=== PATIENT | male | born 1990 | race Caucasian/White ===

== ENCOUNTER 2021-04-12 08:28 | Observation (INO) ==
[2021-04-12] MEDS ORDERED: KETOROLAC TROMETHAMINE 15 MG/ML VIAL IV STA (08:42)
[2021-04-12] MEDS ORDERED: ONDANSETRON INJ 2 MG/ML 2 ML VIAL IV STA ×2 (08:42→11:29)
[2021-04-12] MEDS ORDERED: SODIUM CHLORIDE 0.9% 1000ML 1,000 ML IV ONE (08:42)
--- NOTE | 2021-04-12 08:48 | Emergency Department Note ---
History of Present Illness General Chief Complaint: Flank Pain Stated Complaint: LEFT FLANK PAIN/POSSIBLE KIDNEY STONE? Time Seen by Provider: 04/12/21 08:35 History of Present Illness Provider Complaint: flank pain Onset (ago): 3 day(s) Pain Consistency: intermittent Location: L flank Severity: severe Maximum Pain Intensity: 10 Current Pain Intensity: 8 Quality: + stabbing, + aching, + sharp and + dull Relieved By: + nothing Exacerbated By: + nothing Context: + possible food poisoning (Thought it might be due to eating food that [employer]) and + history of similar episodes (Kidney stone); no foreign travel, no sick contacts, no recent antibiotic use, no recent surgery/procedure or no recent injury Associated Symptoms: + nausea, + vomiting, + diarrhea and + chills; no fever, no constipation, no dysuria, no hematemesis, no hematochezia, no melena, no hematuria, no anorexia, no syncope, no headache, no neck pain, no back pain, no chest pain, no weakness, no breathing difficulty and no numbness Home Medications Medication Instructions Recorded Confirmed Type No Known Home Medications 04/11/21 04/12/21 History Allergies Allergy/AdvReac Type Severity Reaction Status Date / Time No Known Allergies Allergy Unverified 04/12/21 08:44 Past Med/Surg History Medical History No pertinent family history No significant past medical history Surgical History No history of previous surgery Social History Smoking Status: Never smoker Preferred Language: Armenian Feels Safe at Home: Yes Review of Systems A total of 10 systems reviewed and were otherwise negative Physical Exam Vital Signs: Vital Signs - 24 hr 04/12/21 08:32 04/12/21 08:42 04/12/21 12:00 Temperature 37.0 C Temperature Source Oral Pulse Rate 80 82 Respiratory Rate 17 18 Blood Pressure 132/80 Blood Pressure Joceline n 97 Pulse Oximetry 91 100 99 Oxygen Delivery Me thod Room Air Room Air Room Air Sepsis Recent Feve r Within 48 Hours No Sepsis New/Unexpla ined Change in Men akng Status N/A Sepsis Action Take n by Nursing No Action Required Physical Exam: Physical Exam GENERAL: He is oriented to person, place, and time. He appears well-developed and well-nourished. He does not appear distressed. HENT: Exam performed. - Head: Normocephalic and atraumatic. - Right Ear: External ear normal. No mastoid tenderness. - Left Ear: External ear normal. No mastoid tenderness. - Mouth/Throat: The oropharynx is clear and moist. No trismus in the jaw. No dental abscesses or uvula swelling. No oropharyngeal exudate or tonsillar abscesses. EYES: Conjunctivae and EOM are normal. Pupils are equal, round, and reactive to light. Right eye exhibits no discharge. Left eye exhibits no discharge. No scleral icterus. NECK: Normal range of motion. Neck supple. No JVD present. No spinous process tenderness present. No carotid bruit present. No rigidity. No tracheal deviation and normal range of motion present. No Brudzinski's sign and no Kernig's sign noted. CV: Normal rate, regular rhythm, normal heart sounds and intact distal pulses. There is no peripheral edema. Palpable radial pulses bue. PULM/CHEST: Effort normal and breath sounds normal. No respiratory distress. No stridor. He has no wheezes. He has no rales. - Chest Wall: He exhibits no tenderness. ABD: The abdomen is soft. Bowel sounds are normal. He has no distension. No mass is present. There is no tenderness. There is no rebound, no guarding, no Boykin's sign and no tenderness at McBurney's point. Rovsig negative. MUSC/SKEL: Normal range of motion. There is no peripheral edema, tenderness or deformity. LYMPH: No cervical adenopathy. NEURO: He is alert and oriented to person, place, and time. He has normal strength. No cranial nerve deficit or sensory deficit. Coordination and gait normal. GCS eye subscore is 4. GCS verbal subscore is 5. GCS motor subscore is 6. Cerebellar tests wnl. SKIN: Skin is warm and dry. He is not diaphoretic. PSYCH: He has a normal mood and affect. Behavior is normal. Judgment and thought content normal. Course Course 0835: The patient was evaluated in room B6. A complete history and physical exam was performed Cardiac monitoring: An order was placed for continuous cardiac monitoring. The monitor shows a rate of 80 with sinusrhythm EMR reviewed. Patient was seen in the emergency department yesterday. Patient had a CT scan of the abdomen which was negative.Labs including urinalysis were also negative. 1208: Vital signs stable. Labs show an increase in the bilirubin level of 2.8. Labs are otherwise within normal limits. Imaging within normal limits. Patient is having no right-sided abdominal pain. Patient reports he is still having nausea and vomited multiple times in the emergency department. Patient will be given repeat antiemetics and more IV fluids. [facility] be [facility] for intractable nausea and vomiting. Discussed case with Dr. Young agrees to evaluate the patient. Administered Medications Sodium Chloride (Nss 1000ml) 1,000 mls @ 125 mls/hr IV .Q8H AMANDA Stop: 05/12/21 11:29 Last Admin: 04/12/21 12:06 Dose: 125 mls/hr Documented by: [id number] Discontinued Medications Sodium Chloride (Nss 1000ml) 1,000 mls @ 999 mls/hr IV .Q1H1M ONE Stop: 04/12/21 09:42 Last Admin: 04/12/21 08:59 Dose: 999 mls/hr Documented by: [id number] Ketorolac Tromethamine (Ketorolac Tromethamine 15 Mg/Ml Vial) 15 mg IV NOW STA Stop: 04/12/21 08:43 Last Admin: 04/12/21 08:59 Dose: 15 mg Documented by: [id number] Morphine Sulfate (Morphine Sulfate 4 Mg/Ml 1 Ml Carp\Vial) 4 mg IV NOW STA Stop: 04/12/21 09:45 Last Admin: 04/12/21 09:49 Dose: 4 mg Documented by: [id number] Ondansetron HCl (Ondansetron Inj 2 Mg/Ml 2 Ml Vial) 4 mg IV NOW STA Stop: 04/12/21 08:43 Last Admin: 04/12/21 08:58 Dose: 4 mg Documented by: [id number] Ondansetron HCl (Ondansetron Inj 2 Mg/Ml 2 Ml Vial) 4 mg IV NOW STA Stop: 04/12/21 11:30 Last Admin: 04/12/21 12:06 Dose: 4 mg Documented by: [id number] Medical Decision Making Laboratory Data Result diagrams: 04/12/21 Unknown 04/12/21 Unknown Lab Results 04/12/21 04/12/21 04/12/21 Range/Units 09:40 Unknown Unknown WBC 6.11 (4.8-10.8) K/uL RBC 5.43 (4.7-6.1) M/uL Hgb 16.4 (14.0-18.0) g/dL Hct 45.9 (42-52) % MCV 84.5 (80-100) fL MCH 30.2 (25-34) pg MCHC 35.7 (32-36) g/dL RDW Std Deviation 39.1 (36.4-46.3) fL RDW Coeff of Inocencia 12.8 (11.5-14.5) % Plt Count 224 (130-400) K/uL MPV 10.1 (7.4-10.4) fL Immature Gran % (Auto) 0.2 % Neut % (Auto) 64.3 % Lymph % (Auto) 29.3 % [place] % (Auto) 5.2 % Eos % (Auto) 0.7 % Baso % (Auto) 0.3 % Neut # (Auto) 3.93 (1.4-6.5) K/uL Lymph # (Auto) 1.79 (1.2-3.4) K/uL [place] # (Auto) 0.32 (0.11-0.59) K/uL Eos # (Auto) 0.04 (0-0.5) K/uL Baso # (Auto) 0.02 (0-0.2) K/uL Immature Gran # (Auto) 0.01 (0.00-0.02) K/uL Sodium 137 (136-145) mmol/L Potassium 3.3 L (3.5-5.1) mmol/L Chloride 102 (98-107) mmol/L Carbon Dioxide 25 (21-32) mmol/L Anion Gap 10.0 (3-11) BUN 18 (7-18) mg/dl Creatinine 1.28 (0.6-1.4) mg/dl Est Cr Clr Drug Dosing 96.7 ml/min Est GFR ( Amer) 85.9 ml/min Est GFR (Non-Af Amer) 74.1 ml/min BUN/Creatinine Ratio 13.8 (10-20) Glucose 144 H (70-99) mg/dl Calcium 9.2 (8.5-10.1) mg/dl Total Bilirubin 2.8 H D (0.2-1) mg/dl Direct Bilirubin 0.4 H (0-0.2) mg/dl AST 11 L (15-37) U/L ALT 20 (12-78) U/L Alkaline Phosphatase 70 (45-117) U/L Total Protein 7.8 (6.4-8.2) gm/dl Albumin 4.3 (3.4-5.0) gm/dl Lipase 91 (73-393) U/L Influ A Molecular Assay Negative (Negative) Influ B Molecular Assay Negative (Negative) SARS-CoV-2, RNA, NAAT (NEGATIVE) 04/12/21 Range/Units Unknown WBC (4.8-10.8) K/uL RBC (4.7-6.1) M/uL Hgb (14.0-18.0) g/dL Hct (42-52) % MCV (80-100) fL MCH (25-34) pg MCHC (32-36) g/dL RDW Std Deviation (36.4-46.3) fL RDW Coeff of Inocencia (11.5-14.5) % Plt Count (130-400) K/uL MPV (7.4-10.4) fL Immature Gran % (Auto) % Neut % (Auto) % Lymph % (Auto) % [place] % (Auto) % Eos % (Auto) % Baso % (Auto) % Neut # (Auto) (1.4-6.5) K/uL Lymph # (Auto) (1.2-3.4) K/uL [place] # (Auto) (0.11-0.59) K/uL Eos # (Auto) (0-0.5) K/uL Baso # (Auto) (0-0.2) K/uL Immature Gran # (Auto) (0.00-0.02) K/uL Sodium (136-145) mmol/L Potassium (3.5-5.1) mmol/L Chloride (98-107) mmol/L Carbon Dioxide (21-32) mmol/L Anion Gap (3-11) BUN (7-18) mg/dl Creatinine (0.6-1.4) mg/dl Est Cr Clr Drug Dosing ml/min Est GFR ( Amer) ml/min Est GFR (Non-Af Amer) ml/min BUN/Creatinine Ratio (10-20) Glucose (70-99) mg/dl Calcium (8.5-10.1) mg/dl Total Bilirubin (0.2-1) mg/dl Direct Bilirubin (0-0.2) mg/dl AST (15-37) U/L ALT (12-78) U/L Alkaline Phosphatase (45-117) U/L Total Protein (6.4-8.2) gm/dl Albumin (3.4-5.0) gm/dl Lipase (73-393) U/L Influ A Molecular Assay (Negative) Influ B Molecular Assay (Negative) SARS-CoV-2, RNA, NAAT NEGATIVE (NEGATIVE) Imaging Data Radiologist's Impression: Chest/Abdomen X-ray 04/12/21 08:42 XR abdomen 2V w PA chest HISTORY: 31 years-old Male L flank pain acute left-sided flank pain COMPARISON: Chest radiograph 09/17/2011, CT abdomen and pelvis 04/11/2021 TECHNIQUE: PA view of the chest with erect and supine views of the abdomen FINDINGS: Cardiomediastinal and hilar silhouettes are within normal limits. No pneumothorax, pleural effusion, airspace consolidation or overt pulmonary edema. No acute fracture. Nonobstructive bowel gas pattern. No pneumatosis or pneumop eritoneum. No urolith. IMPRESSION: 1. No acute processes of the chest. 2. Nonobstructive bowel gas pattern. 3. No renal or ureteral calculi identified. ACT 112: Negative or not required by law. The above report was generated using voice recognition software. It may contain grammatical, syntax or spelling errors. Electronically signed by: Zachary Green M.D. 04/12/2021 9:46 AM MDM Narrative 0835: The patient was evaluated in room B6. A complete history and physical exam was performed Cardiac monitoring: An order was placed for continuous cardiac monitoring. The monitor shows a rate of 80 with sinusrhythm EMR reviewed. Patient was seen in the emergency department yesterday. Patient had a CT scan of the abdomen which was negative.Labs including urinalysis were also negative. 1208: Vital signs stable. Labs show an increase in the bilirubin level of 2.8. Labs are otherwise within normal limits. Imaging within normal limits. Patient is having no right-sided abdominal pain. Patient reports he is still having nausea and vomited multiple times in the emergency department. Patient will be given repeat antiemetics and more IV fluids. [facility] be [facility] the [facility] for intractable nausea and vomiting. Discussed case with Dr. Young agrees to evaluate the patient. Impression & Plan Intractable vomiting with nausea, Acute left flank pain, Elevated bilirubin Discharge Plan Visit Data Chief Complaint: Flank Pain Stated Complaint: LEFT FLANK PAIN/POSSIBLE KIDNEY STONE? ED Provider: Mohsen Montalvo Discharge Problem: Intractable vomiting with nausea, Acute left flank pain, Elevated bilirubin Patient Disposition: Being Evaluated by Hospitalist Forms Stand Alone Forms: [facility] Prescriptions Prescriptions: No Action No Known Home Medications RF: 0 Referrals Referrals: PCP,NO [Primary Care Provider] -
[2021-04-12 09:22] LABS: Basophils # (auto) 0.02 K/uL (0-0.2); Basophils % (auto) 0.3 %; Eosinophils # (auto) 0.04 K/uL (0-0.5); Eosinophils % (auto) 0.7 %; Hematocrit (blood only) 45.9 % (42-52); Hemoglobin 16.4 g/dL (14.0-18.0); Immature Granulocytes # (auto) 0.01 K/uL (0.00-0.02); Immature Granulocytes % (auto) 0.2 %; Lymphocytes # (auto) 1.79 K/uL (1.2-3.4); Lymphocytes % (auto) 29.3 %; Mean Corpuscular Hemoglobin 30.2 pg (25-34); Mean Corpuscular Hgb Conc 35.7 g/dL (32-36); Mean Corpuscular Volume 84.5 fL (80-100); Mean Platelet Volume 10.1 fL (7.4-10.4); Monocytes # (auto) 0.32 K/uL (0.11-0.59); Monocytes % (auto) 5.2 %; Neutrophils # (auto) 3.93 K/uL (1.4-6.5); Neutrophils % (auto) 64.3 %; Platelet Count 224 K/uL (130-400); RDW Coefficient of Variation 12.8 % (11.5-14.5); RDW Standard Deviation 39.1 fL (36.4-46.3); Red Blood Count 5.43 M/uL (4.7-6.1); White Blood Count 6.11 K/uL (4.8-10.8)
[2021-04-12 09:38] LABS: Albumin Level 4.3 gm/dl (3.4-5.0); BUN Creatinine Ratio 13.8 (10-20); Bilirubin Direct 0.4 mg/dl (0-0.2); Calcium 9.2 mg/dl (8.5-10.1); Creatinine Clr Calc Pharmacy 96.7 ml/min; Est GFR (African American) 85.9 ml/min; Est GFR (Non-African American) 74.1 ml/min; Potassium 3.3 mmol/L (3.5-5.1)
[2021-04-12] MEDS ORDERED: MoRPHine SULFATE 4 MG/ML 1 ML CARP\\VIAL IV STA (09:44)
[2021-04-12 09:45] LABS: Bilirubin,Total 2.8 mg/dl (0.2-1); Total Protein 7.8 gm/dl (6.4-8.2)
--- NOTE | 2021-04-12 09:47 | XRay Report ---
XR abdomen 2V w PA chest HISTORY: 31 years-old Male L flank pain acute left-sided flank pain COMPARISON: Chest radiograph 09/17/2011, CT abdomen and pelvis 04/11/2021 TECHNIQUE: PA view of the chest with erect and supine views of the abdomen FINDINGS: Cardiomediastinal and hilar silhouettes are within normal limits. No pneumothorax, pleural effusion, airspace consolidation or overt pulmonary edema. No acute fracture. Nonobstructive bowel gas pattern. No pneumatosis or pneumoperitoneum. No urolith. IMPRESSION: 1. No acute processes of the chest. 2. Nonobstructive bowel gas pattern. 3. No renal or ureteral calculi identified. ACT 112: Negative or not required by law. The above report was generated using voice recognition software. It may contain grammatical, syntax o r spelling errors. Electronically signed by: Zachary Green M.D. 04/12/2021 9:46 AM
[2021-04-12 10:29] LABS: Influenza A virus by PCR Negative (Negative); Influenza B virus by PCR Negative (Negative)
[2021-04-12] MEDS ORDERED: SODIUM CHLORIDE 0.9% 1000ML 1,000 ML IV SCH (11:30)
--- NOTE | 2021-04-12 12:17 | History & Physical Report ---
Date of Service April 12, 2021 Assessment & Plan (1) Diarrhea: Plan: Likely VGE - no fevers, chills or elevated WBC- - nonspecific bowel gas pattern on KUB - Supportive care for now - antiemetics, LR, electrolyte replacment (2) Acute left flank pain: Plan: MSK vs. Renal - ? Passing of kidney stone at home - No evidence of renal involvement noted on KUB/CT scan of the abdomen - Follow symtpatology - Urine pending (3) Elevated bilirubin: Plan: Unsure of etiology- no anemia, no abnormalities on CT of abdomen in regards to liver, no jaundice, negative boykin's sign - Hydrate- follow levels - Direct and total elevated with indirect 2.4 (4) Hypokalemia: Plan: Replete with 40meq KCL - LR overnight History of Present Illness Primary Care Provider: BLAKE PCP 31 YOM with no documented medical history: Patient came to the [facility] yesterday for evaluation of flank pain, diarrhea. He reports this started on when he went to [facility] and had a pizza after eating he had onset of low back pain that waxed and waned through the night. It was located on his left side and felt like a bruise. Tuesday he had chicken strips on from [facility], but did not have any symptoms following that. He has not had any fevers, abdominal pain, and has been able to drink and mostly tolerate "BRAT" diet. Yesterday morning he did note a sharp stabbing pain in the left flank, followed by chills and sweating and thinks he may have passed out. For his diarrhea it is "normal brown" and liquid with no reports of blood or mucous. He had a normal BM this morning, but remains with back/flank pain. He vomited x2 this morning that was yellow bilious in nature. His pain is located in his left lower back L5-S1 off the left lateral spine. He does not have any CVA tenderness and there is no pain with palpation. Patient does endorse some marijuana use, reported lastly on Tuesday. In the [facility] the patient had routine labs performed, CXR and CT scan of the abdomen performed yesterday. CT of the abdomen with IV contrast was negative for nephrolithiasis or acute abd process. His CKR and KUB today reveals no acute chest process and non-specific bowel gas pattern. His labs are noted for mild increase in his bilirubin and direct bili with normal LFTs and negative Boykin's sign. Patient denies any chronic alcohol abuse/misuse, does not smoke cigarettes or vape. He has one dog that he reports removing some ticks from, but no skin lesions on him, and no other consistent symptoms that go with tick-borne. Patient will be observed overnight, will follow LFTs, UA and tox screen pending, hydrate with LR overnight and replete electrolytes. Patient has received his COVID vaccine and his COVID test is: NEGATIVE Allergies Allergy/AdvReac Type Severity Reaction Status Date / Time No Known Allergies Allergy Unverified 04/12/21 08:44 Home Medications Medication Instructions Recorded Confirmed Type No Known Home Medications 04/11/21 04/12/21 History Past Med/Surg History Medical History No pertinent family history No significant past medical history Surgical History No history of previous surgery Social History Smoking Status: Never smoker Hx Alcohol Use: Yes Alcohol type: beer Hx Substance Use: Yes Last Used Substance: Days (ago) Preferred Language: Bruneian Communication Ability: Effective Java [id number] Technical Lead Required: No Beliefs That Will Affect Care: None Current Living Situation: Significant Other Other Information That Helps Us Care for You: No Feels Safe at Home: Yes Safety Concerns: Feels Safe At This Time Assistive Devices: None Review of Systems Review of Systems: REVIEW OF SYSTEMS: Constitutional: No fever, sweats or chills Eyes: No diplopia, no worsening or blurred vision ENT: normal hearing, no trouble swallowing Respiratory: No cough, sputum, dyspnea at rest or on exertion Cardiovascular: No chest pain, tightness or palpitations Abdomen: (+) nausea, vomiting, diarrhea, No pain, or constipation Musculoskeletal: (+) left lower back joint pain, No calf pain, swelling Neurologic: No weakness, numbness/tingling, or balance problems Psychiatric: No anxiety or depression Skin: No rash or itch Physical Exam Physical Exam: PHYSICAL EXAM: General: awake, alert, no apparent distress Head: Normocephalic, atraumatic ENT: PERRL, EOMI, no pharyngeal exudate, mucous membranes moist Neuro: AAO x 3, speech clear and appropriate, strength intact bilaterally 5/5, sensation intact and equal all extremities and dermatomes, no pronator drift Chest: equal rise and fall of the chest, no accessory muscle use, no heaves or thrills, Clear to auscultation, on room air, Cardiac: Regular rate and rhythm, telemetry reviewed, skin warm dry, cap refill <3 seconds, peripheral pulses +2 no JVD, no murmur, no edema GI: NABS x 4 quadrants, soft, nontender to palpation, no rebound, guarding or tenderness : Spontaneously voiding, no pain, no CVA tenderness, Extremities: Normal inspection, no peripheral edema or erythema, calfs nontender to palpation Psych: Normal mood and affect Skin: no rash or erythema Results & Data Results & Data ([facility]) Vital Signs (Past 12 Hours) Vital Signs Temp Pulse Resp BP Pulse Ox 04/12/21 08:42 82 18 100 04/12/21 08:32 37.0 C 80 17 132/80 91 Laboratory Results Abnormal lab results 04/12/21 Range/Units Unknown Potassium 3.3 L (3.5-5.1) mmol/L Glucose 144 H (70-99) mg/dl Total Bilirubin 2.8 H D (0.2-1) mg/dl Direct Bilirubin 0.4 H (0-0.2) mg/dl AST 11 L (15-37) U/L Diagnostic Findings Chest/Abdomen X-ray 04/12/21 08:42 XR abdomen 2V w PA chest HISTORY: 31 years-old Male L flank pain acute left-sided flank pain COMPARISON: Chest radiograph 09/17/2011, CT abdomen and pelvis 04/11/2021 TECHNIQUE: PA view of the chest with erect and supine views of the abdomen FINDINGS: Cardiomediastinal and hilar silhouettes are within normal limits. No pneumothorax, pleural effusion, airspace consolidation or overt pulmonary edema. No acute fracture. Nonobstructive bowel gas pattern. No pneumatosis or pneumoperitoneum. No urolith. IMPRESSION: 1. No acute processes of the chest. 2. Nonobstructive bowel gas pattern. 3. No renal or ureteral calculi identified. ACT 112: Negative or not required by law. The above report was generated using voice recognition software. It may contain grammatical, syntax or spelling errors. Electronically signed by: Zachary Green M.D. 04/12/2021 9:[address] abd pelvis IV con only CLINICAL HISTORY: LEFT FLANK PAIN, DIARRHEA, POSSIBLE KIDNEY STONE TECHNIQUE: Helical axial images of the abdomen and pelvis were obtained and displayed. Automated dose lowering techniques and/or adjustment according to patient size were utilized for this exam. This exam was performed with intravenous contrast. COMPARISON: None available at the time of this dictation. FINDINGS: Lower chest: No acute abnormality Liver: Unremarkable. No focal lesions are seen. Gallbladder and biliary tree: No calcified gallstones. Normal caliber wall. No intra- or extrahepatic biliary ductal dilation. Pancreas: Unremarkable, no focal lesions. Spleen: Unremarkable. Adrenals: Unremarkable. Kidneys and ureters: Unremarkable. In particular there is no left hydronephrosis or nephrolithiasis. Bladder: Unremarkable. Reproductive organs: Unremarkable. Bowel: Unremarkable appearance of the bowel. The appendix is normal. Lymph nodes Retroperitoneal: Unremarkable. Mesenteric: Unremarkable. Pelvic: Unremarkable. Peritoneum: Normal Vessels: Unremarkable. Abdominal wall: Unremarkable. Bones: Unremarkable. IMPRESSION: No acute abnormalities and in particular no evidence of nephrolithiasis or hydronephrosis. ACT 112: Negative or not required by law. Electronically signed by: Rolando Babb M.D. 04/11/2021 3:40 PM Medications Administered Home Medications No Known Home Medications 04/11/21 [History Confirmed 04/12/21] Active Medications Sodium Chloride (Nss 1000ml) 1,000 mls @ 125 mls/hr IV .Q8H AMANDA Stop: 05/12/21 11:29 Last Admin: 04/12/21 12:06 Dose: 125 mls/hr Documented by: Code Status & VTE Plan Code Status CODE: FULL VTE: SCDS, ambulation VTE Prophylaxis Plan VTE Prophylaxis will be ordered: Yes Supervising Physician Co-Signing Physician Notes Patient was seen and examined independently I discussed the case with Nils WRAY I reviewed pertinent past medical social family history and also the plan of care and agree with the plan of care. Patient states his discomfort is improving now down to 2/10. Nausea is improved with medications. Exam is unremarkable abdomen is normoactive bowel sounds soft only moderate tender to palpation. Observation for supportive care for gastroenteritis Any exceptions will be noted below PG Care Time/CCT Total # of Minutes Spent Total Time Spent with Patient: Total time spent is greater than 50% in coordination of care (as documented) at patient's floor/unit and/or counseling patient: Coding Level of Care Code INT OBSERVATION CARE 70M LVL 3 Diagnoses Diarrhea R19.7 Acute left flank pain R10.9 Elevated bilirubin R17 Hypokalemia E87.6
[2021-04-12] MEDS ORDERED: POTASSIUM CHLORIDE CRTAB 20 MEQ TABCR PO STA (12:52)
[2021-04-12 15:18] LABS: Appearance Urine Cloudy (Clear); Bacteria Urine Automated Negative (Negative); Blood Urine 3+ (Negative); Color Urine Dark Yellow; Glucose Urine UA Negative (Negative); Ketones Urine 3+ (Negative); Leukocyte Esterase Urine Negative (Negative); Nitrite Urine Negative (Negative); Protein Urine Trace (Negative); RBC Urine Automated 0-4 /hpf (0-4); Specific Gravity Urine 1.037 (1.000-1.030); Urobilinogen Urine Negative (Negative)
[2021-04-12] MEDS ORDERED: METOCLOPRAMIDE HCL INJ 5 MG/ML 2 ML VIAL IV PRN (15:30)
[2021-04-12] MEDS ORDERED: ONDANSETRON 4 MG OD TAB PO PRN (15:30)
[2021-04-12 15:33] LABS: Bilirubin Urine 1+ (Negative)
[2021-04-12 15:40] LABS: Amphetamines+Metham, Urine Neg (Neg); Barbiturates, Urine Neg (Neg); Benzodiazepine, Urine Neg (Neg); Cocaine, Urine Neg (Neg); MDMA (Ecstacy), Urine Neg (Neg); Methadone, Urine Neg (Neg); Opiate, Urine Pos (Neg); Phencyclidine, Urine Neg (Neg)
[2021-04-12] MEDS ORDERED: HYDROmorphone INJ 1 MG/ML SYRINGE IV PRN (15:45)
[2021-04-12] MEDS: LACTATED RINGER'S 1,000 ML IV SCH (15:53)
[2021-04-12] MEDS: HYDROmorphone INJ 0.5 MG/0.5 ML SYR IV PRN ×2 (16:30→20:59)
[2021-04-12 16:38] LABS: Bilirubin Direct 0.4 mg/dl (0-0.2); Bilirubin,Total 2.1 mg/dl (0.2-1)
[2021-04-13] MEDS: LACTATED RINGER'S 1,000 ML IV SCH ×2 (03:39→14:48)
[2021-04-13 09:13] LABS: Basophils # (auto) 0.01 K/uL (0-0.2); Basophils % (auto) 0.1 %; Hematocrit (blood only) 39.1 % (42-52); Hemoglobin 13.9 g/dL (14.0-18.0); Immature Granulocytes # (auto) 0.01 K/uL (0.00-0.02); Immature Granulocytes % (auto) 0.1 %; Lymphocytes # (auto) 1.21 K/uL (1.2-3.4); Mean Corpuscular Hemoglobin 29.8 pg (25-34); Mean Corpuscular Hgb Conc 35.5 g/dL (32-36); Mean Corpuscular Volume 83.9 fL (80-100); Monocytes # (auto) 0.79 K/uL (0.11-0.59); Monocytes % (auto) 9.2 %; Neutrophils % (auto) 76.6 %; Platelet Count 189 K/uL (130-400); RDW Coefficient of Variation 12.7 % (11.5-14.5); RDW Standard Deviation 38.6 fL (36.4-46.3); Red Blood Count 4.66 M/uL (4.7-6.1); White Blood Count 8.62 K/uL (4.8-10.8)
[2021-04-13 09:42] LABS: BUN Creatinine Ratio 13.6 (10-20); Calcium 8.4 mg/dl (8.5-10.1); Creatinine Clr Calc Pharmacy 93.8 ml/min; Est GFR (African American) 82.7 ml/min; Est GFR (Non-African American) 71.4 ml/min; Magnesium 1.8 mg/dl (1.8-2.4); Potassium 3.8 mmol/L (3.5-5.1)
[2021-04-13 12:16] LABS: Albumin Level 3.4 gm/dl (3.4-5.0); Bilirubin Direct 0.3 mg/dl (0-0.2); Bilirubin,Total 2.4 mg/dl (0.2-1); Total Protein 6.4 gm/dl (6.4-8.2)
[2021-04-13 15:38] LABS: Hepatitis B Surf Ag Rflx Conf Neg (Neg)
[2021-04-13 16:07] LABS: Hepatitis C IgG 13Yrs+Old_Rflx Neg (Neg)
[2021-04-13] MEDS: HYDROmorphone INJ 0.5 MG/0.5 ML SYR IV PRN (17:45)
--- NOTE | 2021-04-13 18:05 | XRay Report ---
XR lumbar spine min 4V routine CLINICAL HISTORY: Low back pain. COMPARISON STUDY: No previous studies for comparison. TECHNIQUE: 6 Views of the lumbar spine FINDINGS: Bones: There is no evidence for fracture or malalignment. The heights of the vertebral bodies are osman ntained. There are no lytic or blastic lesions present. Disc spaces: The disc space heights are maintained. Facet joints: The facet joints are intact bilaterally. Soft tissues: The paraspinal soft tissues are within normal limits. IMPRESSION: No acute abnormality. ACT 112: Negative or not required by law. Electronically signed by: Omid Jimenez M.D. 04/13/2021 6:04 PM
--- NOTE | 2021-04-13 18:33 | Discharge Summary ---
Date of Service April 13, 2021 Admission HPI Per Admitting Provider 31 YOM with no documented medical history: Patient came to the [facility] yesterday for evaluation of flank pain, diarrhea. He reports this started on when he went to [facility], operated by [facility] and had a pizza after eating he had onset of low back pain that waxed and waned through the night. It was located on his left side and felt like a bruise. Tuesday he had chicken strips on from [facility], but did not have any symptoms following that. He has not had any fevers, abdominal pain, and has been able to drink and mostly tolerate "BRAT" diet. Yesterday morning he did note a sharp stabbing pain in the left flank, followed by chills and sweating and thinks he may have passed out. For his diarrhea it is "normal brown" and liquid with no reports of blood or mucous. He had a normal BM this morning, but remains with back/flank pain. He vomited x2 this morning that was yellow bilious in nature. His pain is located in his left lower back L5-S1 off the left lateral spine. He does not have any CVA tenderness and there is no pain with palpation. Patient does endorse some marijuana use, reported lastly on Tuesday. In the [facility] the patient had routine labs performed, CXR and CT scan of the abdomen performed yesterday. CT of the abdomen with IV contrast was negative for nephrolithiasis or acute abd process. His CKR and KUB today reveals no acute chest process and non-specific bowel gas pattern. His labs are noted for mild increase in his bilirubin and direct bili with normal LFTs and negative Boykin's sign. Patient denies any chronic alcohol abuse/misuse, does not smoke cigarettes or vape. He has one dog that he reports removing some ticks from, but no skin lesions on him, and no other consistent symptoms that go with tick-borne. Patient will be observed overnight, will follow LFTs, UA and tox screen pending, hydrate with LR overnight and replete electrolytes. Patient has received his COVID vaccine and his COVID test is: NEGATIVE Principal Diagnosis 1. Left flank pain/back painexact etiology unclear but suspected to be musculoskeletal in nature 2. Mild hyperbilirubinemiaexact etiology unclear. Work-up pending 3. Hypokalemiareplaced and resolved Discharge Exam General: Resting comfortably in his hospital bed. NAD. HEENT: Head is AT/NC buccal mucosa is moist and pink Neck: No JVD. Negative hepatojugular reflex Cardiac: RRR without M/G/R Lungs: CTA without W/R/R Abdomen: Normoactive X4. Soft and nontender in all quadrants. Extremities: No peripheral clubbing cyanosis or edema Neuro: A&O X4 cranial nerves II through XII are grossly intact no focal neuro deficits Skin: No obvious skin lesions or rashes Psych: Appropriate affect pleasant and cooperative Discharge Data Allergies Allergy/AdvReac Type Severity Reaction Status Date / Time No Known Allergies Allergy Unverified 04/12/21 08:44 Consultations 04/12/21 11:47 ED Decision to Admit Stat Procedures Performed CT of the abdomen and pelvis done 04/11: IMPRESSION: No acute abnormalities and in particular no evidence of nephrolithiasis or hydronephrosis CXR/KUB: IMPRESSION: 1. No acute processes of the chest. 2. Nonobstructive bowel gas pattern. 3. No renal or ureteral calculi identified. X-ray of the lumbosacral spine: FINDINGS: Bones: There is no evidence for fracture or malalignment. The heights of the vertebral bodies are maintained. There are no lytic or blastic lesions present. Disc spaces: The disc space heights are maintained. Facet joints: The facet joints are intact bilaterally. Soft tissues: The paraspinal soft tissues are within normal limits. IMPRESSION: No acute abnormality. Hospital Course (1) Acute left flank pain: MSK vs. Renal. Suspect the former - ? Passing of kidney stone at home; however, no abnormality seen on imaging and - No evidence of renal involvement noted on KUB/CT scan of the abdomen - did have 3+ blood seen in urine which would correlate with possible passing of a stone (but nothing seen on CT or KUB) -Has had intermittent periods of pain throughout hospitalization that seems to be brought on more with movement and consistent with paravertebral spasms KUB done showing no abnormality At this time, patient is medically and hemodynamically stable for discharged home. Will prescribe Naprosyn and Flexeril to use as needed and I have encouraged utilization of heat. Avoid heavy lifting (2) Elevated bilirubin: Unsure of etiology- no anemia, no abnormalities on CT of abdomen in regards to liver, no jaundice, negative boykin's sign -Bilirubin is downtrending. AST/ALT remain normal I have ordered a battery of labs including a copper level, alpha-1 antitrypsin level, acute hepatitis panel, EBV, CMV and GGT. Patient is not n.p.o. so did not do a right upper quadrant ultrasound but that would be the next diagnostic study recommended Although his level is high, it is downtrending. No need to keep him in the hospital for this Would advise PCP repeat labs to trend and if remains elevated, consider right upper quadrant ultrasound Patient encouraged to avoid Tylenol/Tylenol related products and alcohol (3) Hypokalemia: Replaced/resolved Total Time Total Time Spent Total Time Spent (In Minutes): 35 Discharge Plan Discharge Items Patient Disposition: Home - Self-Care Reason For Visit: NAUSEA,VOMITTING Discharge Diagnosis: 1. Back pain- exact etiology unclear 2. hyperbilirubinemia (elevated bilirubin level-- part of your liver function tests) 3. Hypokalemia- replaced and resolved. Activity: Resume your previous activity Non-emergency contact: Primary Care Provider Call non-emergency contact if: you have any medication questions and your symptoms worsen Follow-up/Referrals: Guicho Liang MD [Primary Care Provider] - 04/20/21 9:10 am (To become established with primary care. Your first appointment will be with Dr. Liang. After that, you are free to transition to any [facility] provider of your choice.) Diet: Regular Addtl Attending Provider Instructions: - you presented to the hospital with back pain-- the exact etiology remains unclear - suspect musculoskeletal in nature - can use naprosyn and flexeril as needed (flexeril as needed for spasm and will cause drowsiness) - use heat to the area - in addition, your bilirubin level was slightly elevatedexact etiology unclear - labs ordered to help differentiate - would advise your PCP follow-up on this and if persistent, obtain a right upper quadrant ultrasound - return to the ED for any new or worsening symptoms Pending Studies at Discharge: Yes Studies:: labs: CMV, EBV, hepatitis panel, [id number] level, copper level Stand-Alone Forms: My [employer], Smoking Cessation Medications and DC Order Prescriptions: New naproxen [Naprosyn] 500 mg tablet 500 mg PO BID PRN (Reason: pain) Qty: 30 RF: 0 cyclobenzaprine 10 mg tablet 10 mg PO Q8H PRN (Reason: muscle spasm) Qty: 30 RF: 0 No Action No Known Home Medications RF: 0 Discharge Orders: Discharge Order (Routine); Ordered 04/13/21 Ordered By: Maddie Wright Admission Data Admit Date/Time: 04/12/21 12:11 Attending Provider: Geovany Foster Admit Provider: James Carty Primary Care Provider: Guicho Liang Other Providers: Geovany Foster Other Interventions: Discharge Summary Assessment (RN) Last Done: 04/13/21 18:35 Supervising Physician Co-Signing Physician Notes I supervised Maddie Wright PA-C on the care of this patient. I interviewed and examined the patient independently of her. The plan is as written in her note except for any following changes/exceptions: None No pain since this morning. I am honestly not sure of the pain because it presents with bowel movements and then relieved today with urination. I posited the idea of a sigmoid colon spasm or something of that nature as it worsens with bearing down and relieved with relaxation. It is also possible it is MSK from the lower back. SI joints were not painful and no real morning stiffness, so I think an ankylosing spondylitis is less likely. He will get a PCP and f/u outpatient if the pain recurs. I did encourage him to return if he has fevers/chills, nausea, or pain that is not bearable at home. Coding Level of Care Code 85999 OBS Care - Discharge Diagnoses Acute left flank pain R10.9 Elevated bilirubin R17 Hypokalemia E87.6
[2021-04-15 09:11] LABS: Codeine Urine NEGATIVE ng/mL (<50); Hydrocodone Urine NEGATIVE ng/mL (<50); Hydromor Urine NEGATIVE ng/mL (<50); Marijuana Quant, GCMS Urine 2090 ng/mL (<5); Morphine Urine 7650 ng/mL (<50); Norhydrocodone Conf Ur NEGATIVE ng/mL (<50); Noroxycodone Urine NEGATIVE ng/mL (<50); Oxycodone Urine NEGATIVE ng/mL (<50); Oxymorph Urine NEGATIVE ng/mL (<50)
[2021-04-17 06:22] LABS: Alpha 1 Antitrypsin 152 mg/dL (83-199); CMV IgM Antibody <30.00 AU/mL; Copper, Serum 90 mcg/dL (70-175); Epstein Barr Virus Early Ag Ab <9.00 U/mL; Hepatitis A Antibody IgM NON-REACTIVE (NON-REACTIVE); Hepatitis B Core Antibody IgM NON-REACTIVE (NON-REACTIVE)
== END 2021-04-13 19:06 | disposition home or self-care (01) ==
LOC: ED 08:28 → 3N 08:28 → SUATTDRO 12:11 → 3N 15:29